=== PATIENT | male | born 1935 | race Caucasian/White ===

== ENCOUNTER 2017-12-30 15:43 | Inpatient (IN) | payer OTHER, MEDICARE ==
[~2017-12-30] VITALS: Ht 165.1 cm; Wt 94.3 kg
--- NOTE | ~2017-12-30 | CRIT ---
[facility] [place] [address] CRITICAL CARE NOTE Name: MICHAEL ANTOINE Room #: 454-P [facility] [place] .R.#: [id number] Admission: 12/30/17 Attend Phys: Ilsa Pandya Discharge: 01/01/18 Date of : 39 Report #: [id number] THIS REPORT FOR: //name// CC: Andre Quiroz DATE OF SERVICE: 12/31/2017 SUBJECTIVE: The patient is a very pleasant 82-year-old male who presents with a couple episodes of small volume hematochezia. He denies significant abdominal pain. He had a similar bleed a couple of years ago and underwent colonoscopy at that time. He is noted to have significant diverticulosis. He has no other GI complaints. PAST MEDICAL HISTORY: Notable for GERD, hypertension, prostate cancer, status post prostatectomy and radiation. He has had diverticulitis and osteoarthritis. He had a left knee replacement, hernia repair, and tonsillectomy. FAMILY HISTORY AND SOCIAL HISTORY: Noncontributory. ALLERGIES: He is allergic to no medications. MEDICATIONS ON presentation, hydrochlorothiazide, Flonase, Ultram, omeprazole, multivitamin lisinopril, Singulair, Lipitor, hydrocodone, Zyrtec, calcium, hyoscyamine and aspirin. REVIEW OF SYSTEMS: CONSTITUTIONAL: Negative for weight loss, weakness or fatigue. HEENT: He denies head, eyes, ears, nose or throat complaints. Denies chest pain, chest palpitation, chest pressure, cough, shortness of breath, wheezing, genitourinary, musculoskeletal or neuropsychiatric complaints otherwise. PHYSICAL EXAMINATION: VITAL SIGNS: Afebrile, vital signs stable. HEENT: Nonicteric. NECK: No JVD, thyromegaly or bruits. CARDIOVASCULAR: Regular. LUNGS: Clear. ABDOMEN: Soft, nondistended, nontender, normoactive bowel sounds. No hepatosplenomegaly. No stigmata of chronic liver disease. No abnormal masses or bruits. EXTREMITIES: No clubbing, cyanosis or edema. NEUROLOGIC: Not performed. RECTAL: Not performed. PERTINENT LABORATORY DATA: Include white count 9.2, hemoglobin 13.8, normal MCV, normal RDW. Chemistry notable for BUN 32, creatinine 1.3, glucose 109. No [address] [address] CRITICAL CARE NOTE Name: MICHAEL ANTOINE Room #: 454-P [facility] IN [facility].#: [id number] Admission: 12/30/17 Attend Phys: Ilsa aPndya Discharge: 01/01/18 Date of : 39 Report #: [id number] liver tests were obtained. Lipase as well. IMAGING: Extensive colonic diverticulosis and possibly mild descending colonic diverticulitis and cholelithiasis. ASSESSMENT AND PLAN: In summary, the patient has limited rectal bleeding, most likely secondary to hemorrhoids and/or diverticulosis. I would advance his diet and discharge in the next 24 hours if is no further bleeding for a colonoscopy in 2 to 3 weeks. He does not have significant abdominal pain, so I doubt that the CT findings really represent acute diverticulitis. Thank you for allowing us to participate in the care of this nice man. We will follow. <ELECTRONICALLY SIGNED> By: Brendan Baird MD 01/02/18 1249 [id number] [id number] Chas Garcia MD /nt
--- NOTE | ~2017-12-30 | H ---
[facility] [place] [address] HISTORY AND PHYSICAL Name: MICHAEL ANTOINE Room #: 454-P ADM IN M.R.#: [id number] Admission: 12/30/17 Attend Phys: Ilsa Pandya Discharge: Date of : 39 Report #: [id number] THIS REPORT FOR: //name// CC: Andre Quiroz DATE OF SERVICE: 12/30/2017 CHIEF COMPLAINT: Rectal bleeding. HISTORY OF PRESENT ILLNESS: The patient is an 82-year-old gentleman with a history of diverticulitis, who came to the Emergency Room with 1-day rectal bleeding. He was in his usual state of health and was using the bathroom with a bowel movement noted bright red blood. He did not have any pain, fever, chills, nausea, vomiting. He does take Mobic at home, but has not had any upper GI issues of nausea, vomiting or hematemesis. He had 1 further bloody stool and was noted to have some blood in ER; however, overnight he has had no further bleeding. PAST MEDICAL HISTORY: GERD, hypertension, prostate cancer treated with prostatectomy in 2004 and radiation treatment, diverticulitis with remission in 2009, diffuse osteoarthritis. PAST SURGICAL HISTORY: He has had a left knee replacement, hernia repair, tonsillectomy. FAMILY HISTORY: Noncontributory. SOCIAL HISTORY: No chronic alcohol or tobacco use. ALLERGIES: No known drug allergies. MEDICATIONS: Hydrochlorothiazide, Flonase, Ultram, omeprazole, multivitamin, lisinopril, Singulair, Lipitor, hydrocodone, Zyrtec, calcium, hyoscyamine, aspirin. REVIEW OF SYSTEMS: He denies headache, chest pain, shortness of breath, abdominal pain, nausea, vomiting, diarrhea, constipation, dysuria, syncope or fall. PHYSICAL EXAMINATION: VITAL SIGNS: Temperature 36.4, pulse 63, respirations 18, blood pressure 134/59. GENERAL: He is awake and alert, in no distress. LUNGS: Clear. HEART: Regular. ABDOMEN: Soft, normoactive bowel sounds. No rebound or guarding. [facility] [address] [place] [address] HISTORY AND PHYSICAL Name: MICHAEL ANTOINE Room #: 454-P [facility] IN ..#: [id number] Admission: 12/30/17 Attend Phys: Ilsa Pandya Discharge: Date of : 39 Report #: [id number] EXTREMITIES: No cyanosis, clubbing or edema. LABORATORY DATA: White count was normal, hemoglobin was almost 14. Chemistry unremarkable. CT abdomen and pelvis reviewed revealing colonic diverticulosis with mild descending colon diverticulitis and cholelithiasis. ASSESSMENT: 1. Acute diverticulitis. 2. Acute lower gastrointestinal bleed due to the above. PLAN: I will continue IV antibiotics and bowel rest today. I have asked the GI service to assess him, but this may be a situation where we allow his diverticulitis to clear with antibiotics and consider a scope as an outpatient unless another emergent issue arises. However, await their opinion. <ELECTRONICALLY SIGNED> By: Ronaldo Palacios MD 01/01/18 0902 0813 1002 Ronaldo Palacios MD /nt
--- NOTE | ~2017-12-30 | D ---
[facility] [place] [address] DISCHARGE SUMMARY Name: MICHAEL ANTOINE Room #: 454-P [facility] IN M.R.#: [id number] Admission: 12/30/17 Attend Phys: Ilsa Pandya Discharge: 01/01/18 Date of : 39 Report #: [id number] THIS REPORT FOR: //name// CC: Andre Quiroz FINAL DIAGNOSES: 1. Lower gastrointestinal bleed. 2. Acute diverticulitis. HOSPITAL COURSE: The patient was admitted with lower GI bleed. He had a couple episodes of bright red blood. Hemoglobin remained stable and he had no further bleeding during his stay. He had a regular bowel movement on the day of discharge, vital signs remained stable. CT suggested diverticulosis, maybe with some inflammation. He was treated empirically with antibiotics for acute diverticulitis. The GI service evaluated him and felt that endoscopy at 4-6 week interval would be appropriate as there was no urgent indication currently. PHYSICAL EXAMINATION: On the day of discharge: GENERAL: He was awake and alert. VITAL SIGNS: Stable. LUNGS: Clear. HEART: Regular. ABDOMEN: Protuberant, soft, normoactive bowel sounds. Nontender. EXTREMITIES: No edema. DISPOSITION: Discharged home with diet and activity as tolerated, resume all medications with the exception of aspirin to restart in 3 days. He will finish a 7-day course of antibiotics with Cipro and Flagyl. Follow up with Dr. Quiroz in 2 weeks, Dr. Baird in 4 weeks. <ELECTRONICALLY SIGNED> By: Ronaldo Palacios MD 01/02/18 0921 1202 1336 Ronaldo Palacios MD /nt
[~2017-12-30 15:43] MED LIST: ACETAMINOPHEN325 M1 PO; ANTACID500 MG PO; APAP500 PO; ASPIRIN EC81 M1 PO; CELEBREX 200 M200 MG PO; EXCEDRIN CAPLE1 EACH PO; FLONASE16 GM NASAL; HCTZ PO; HYDROCHLOROTH12.5 MG PO; HYDROCODONE PO; HYDROCODONE-AP1 EAC6 PO; IRON325 PO; LIPITOR20 MG PO; LISINOPRIL10 MG; LISINOPRIL2.5 MG PO; LOPRESSOR 50 MG50 M1 PO; MULTIVITAMINS PO; MULTIVITAMINS1 EAC7 PO; NASAL DECONGEST10 MG PO; NULEV0.125 MG SUBLING; OMEPRAZOLE20 MG PO; PERCOCET 5-3251 EACH PO; PRINIVIL20 MG PO; SINGULAIR 10 MG10 M1 PO; SUDAFED30 MG PO; TAGAMET HB200 MG PO; TRAMADOL 50 MG50 MG PO; TUMS DUAL ACTI1 EACH PO
[2017-12-30 16:22] VITALS: BP 157/75
[2017-12-30 18:18] LABS: EOSINOPHILS 2.7 % (0.0-3.0); HEMATOCRIT 40.9 % (42.0-52.0); HEMOGLOBIN 13.8 gm/dL (14.0-18.0); LYMPHOCYTES 11.1 % (24.0-44.0); MCH 29.8 pg (26.0-34.0); MCHC 33.9 g/dL (28.0-37.0); MCV 88.1 fL (80.0-100.0); MONOCYTES 8.5 % (1.0-8.0); PLATELET COUNT 233 thou/uL (150-400); POLYS 76.7 % (36.0-66.0); RBC 4.64 mil/uL (4.50-6.00); WBC 9.2 thou/uL (4.0-11.0)
[2017-12-30 18:27] LABS: CALCIUM 9.4 mg/dL (8.5-10.1); CREATININE 1.3 mg/dL (0.7-1.3); POTASSIUM 4.6 mmol/L (3.5-5.1)
[2017-12-30] MEDS ORDERED: HYDROCHLOROTH12.5 M1 PO (19:41)
[2017-12-30] MEDS ORDERED: ZYRTEC10 M4 PO (19:42)
[2017-12-30] MEDS ORDERED: ACETAMINOPHEN500 M1 PO (19:43)
[2017-12-30] MEDS ORDERED: TUMS PO (19:44)
[2017-12-30] MEDS ORDERED: NULEV0.125 MG PO (19:46)
[2017-12-30] MEDS ORDERED: ADULT ASPIRIN81 MG PO (19:47)
[2017-12-30] MEDS ORDERED: ACID REDUCER200 MG PO (19:50)
[2017-12-30 20:27] VITALS: BP 149/81
[2017-12-30 21:04] VITALS: BP 179/84
[2017-12-30] MEDS ORDERED: MOBIC15 MG PO (21:51)
[2017-12-30] MEDS ORDERED: ASPERCREME76.5 GM INTRADERM (22:51)
[2017-12-31 04:19] VITALS: BP 134/59
[2017-12-31 08:35] VITALS: BP 144/64
[2017-12-31 09:05] LABS: HEMOGLOBIN 12.5 gm/dL (14.0-18.0); MCHC 33.8 g/dL (28.0-37.0); MCV 88.9 fL (80.0-100.0); RBC 4.16 mil/uL (4.50-6.00); RDW 13.7 % (10.5-14.5); WBC 7.8 thou/uL (4.0-11.0)
[2017-12-31 16:25] VITALS: BP 129/52
[2017-12-31 19:53] VITALS: BP 112/54
[2018-01-01 05:45] LABS: HEMATOCRIT 38.4 % (42.0-52.0); HEMOGLOBIN 13.1 gm/dL (14.0-18.0); MCH 30.1 pg (26.0-34.0); MCHC 34.1 g/dL (28.0-37.0); MCV 88.2 fL (80.0-100.0); RBC 4.36 mil/uL (4.50-6.00); RDW 13.6 % (10.5-14.5); WBC 8.9 thou/uL (4.0-11.0)
[2018-01-01 08:00] VITALS: BP 151/67
[2018-01-01] MEDS ORDERED: ADULT ASPIRIN81 MG PO (11:58)
[2018-01-01] MEDS ORDERED: FLAGYL500 MG PO (11:59)
[2018-01-01] MEDS ORDERED: CIPRO500 MG PO (11:59)
[2018-01-01 12:07] VITALS: BP 151/67
== END 2018-01-01 16:30 | disposition home or self-care (01) | DRG 379 ==
LOC: ER 15:43 → EROBS 19:59 → 4W 19:59 → ENTRNSPT 01-01 16:00 → 4W 01-01 16:30
PROVIDERS: Internal Medicine Geriatric Medicine; Student in an Organized Health Care Education/Training Program
DX: K57.93 Diverticulitis of intestine, part unspecified, without perforation or abscess with bleeding (principal); K21.9 Gastro-esophageal reflux disease without esophagitis; K57.91 Diverticulosis of intestine, part unspecified, without perforation or abscess with bleeding; Z96.652 Presence of left artificial knee joint; M19.90 Unspecified osteoarthritis, unspecified site; I10 Essential (primary) hypertension; Z79.899 Other long term (current) drug therapy; Z85.46 Personal history of malignant neoplasm of prostate; Z92.3 Personal history of irradiation
CPT/HCPCS: 10045

== ENCOUNTER → 2018-02-14 | Outpatient (CLI) | payer OTHER, MEDICARE ==
[~2018-02-14] VITALS: Ht 165.1 cm; Wt 88.5 kg
[~2018-02-14] MED LIST changes: +ACETAMINOPHEN500 M1 PO; +ACID REDUCER200 MG PO; +ADULT ASPIRIN81 MG PO; +ASPERCREME76.5 GM INTRADERM; +ASPIR 8181 M1 PO; +CIPRO500 MG PO; +FLAGYL500 MG PO; +FLONASE 0.05%50 MCG NASAL; +HYDROCHLOROTH12.5 M1 PO; +MOBIC15 MG PO; +NULEV0.125 MG PO; +TUMS PO; +ZYRTEC10 M4 PO
--- NOTE | ~2018-02-14 | PATH ---
[facility] [place] [address] PATHOLOGY RPT PROCEDURE Name: ANTOINEMICHAEL French Room #: REG BHARAT [place]#: [id number] Admission: 02/14/18 Date of : 39 Discharge: Report #: [id number] Path Case #: [id number] [facility] Accession Number: [id number] . 01 Material submitted: . POLYP AT ASCENDING COLON . 01 Clinician provided ICD-10: K57.30 . 01 Clinical history: . Pre-OP DX: Diverticulosis Post-OP DX: Colon polyp, diverticulosis . 02 Diagnosis: Polyp, at ascending colon, endoscopic biopsy: - Inflammatory polyp with numerous eosinophils (please see comment). - Negative for dysplasia. RUST/02/15/2018 . 02 Comment: Examination shows scattered rare foci of cryptitis with a markedly expanded lamina propria showing predominantly eosinophils. The eosinophils in the current specimen are numerous. Potential etiologies for this pattern may include allergic diseases, collagen vascular diseases, fungal or parasitic infections as well as eosinophilic colitis (idiopathic variant) in addition to medication induced changes. Please correlate with clinical and endoscopic findings. (IUV:pit 02/15/2018) . 02 Electronically signed: . Renata Cedeno MD, Pathologist NPI- [id number] . 01 Gross description: . Received in formalin labeled "Michael Antoine, polyp at ascending colon," are 2 segments of buckner soft tissue measuring 0.7 x 0.3 x 0.3 cm in aggregate dimensions and ranging from 0.3 to 0.4 cm in maximum dimension. The specimen is submitted entirely in cassette A1. (TSD; 02/14/2018) TOB/TOB . 02 Pathologist provided ICD-10: K51.40 . 02 CPT . [id number] [address] [address] PATHOLOGY RPT PROCEDURE Name: MICHAEL ANTOINE Room #: REG CL Wei.#: [id number] Admission: 02/14/18 Date of : 39 Discharge: Report #: [id number] Path Case #: [id number] Specimen Comment: A courtesy copy of this report has been sent to Specimen Comment: [phone], . Specimen Comment: Report sent to / DR MEADOWS Specimen Comment: A duplicate report has been generated due to demographic updates. Performed at: [address], [place], [place] [id number] MD Adrian Clauido MD Phone: [phone] Performed at: [address] [id number] MD Renata Cedeno MD Phone: [phone]
--- NOTE | ~2018-02-14 | P ---
[facility] [place] [address] PROCEDURE REPORT Name: MICHAEL ANTOINE [id number] Admission: 02/14/18 Attend Phys: Brendan [place] Discharge: Date of : 39 Report #: [id number] THIS REPORT FOR: //name// CC: Drew Quiroz DATE OF SERVICE: 02/14/2018 PROCEDURE PERFORMED: Colonoscopy with biopsies. HISTORY OF PRESENT ILLNESS: The patient is an 82-year-old male who was hospitalized for hematochezia on 12/30/2017 and was discharged on 01/01/2018. He has a previous history of diverticulosis. His bleeding spontaneously stopped. He is having no further symptoms at this time. Plan is for colonoscopy. DESCRIPTION OF PROCEDURE: The risks and benefits of the procedure were explained to the patient; those risks including but not limited to bleeding, perforation and the risk of sedation. He understood these risks and gave informed consent. Sedation was given using propofol per anesthesia. Next, a digital rectal exam was initially performed, which was normal. Next, using a standard Olympus colonoscope, the scope was placed in the patient's anus and advanced under direct vision to the cecum. The overall prep was excellent. The cecum and ileocecal valve were normal in appearance. In the proximal ascending colon, a 3-mm sessile polyp was noted. This was removed with cold forceps, otherwise normal. Transverse colon was normal. Multiple diverticula were noted in the descending and sigmoid colon. No evidence of inflammation. No stigmata of recent bleeding. No colitis. The rectal mucosa was normal. On retroflexion, small nonbleeding internal hemorrhoids were noted. A single external hemorrhoid, nonbleeding, was also noted. The scope was then withdrawn and the procedure terminated. The patient tolerated the procedure well. IMPRESSION: 1. Small colonic polyp. 2. Left-sided diverticulosis, without evidence of bleeding. 3. Internal and external hemorrhoids, as described above. RECOMMENDATIONS: 1. Await biopsy results. 2. Suspect recent bleeding was either due to diverticular bleed or due to hemorrhoids, none of which have signs of bleeding at this time. We would recommend simply observing and a high-fiber diet. If significant bleeding occurs in the future, could consider nuclear medicine bleeding scan at that time. [address] [address] PROCEDURE REPORT Name: MICHAEL ANTOINE Room #: REG BHARAT [place]#: [id number] Admission: 02/14/18 Attend Phys: Brendan [place] Discharge: Date of : 39 Report #: [id number] Thank you for allowing me to participate in his care. <ELECTRONICALLY SIGNED> By: Brendan Baird MD 02/16/18 0845 1106 2329 Brendan Baird MD /nt
== END | disposition home or self-care (01) ==
LOC: GI 09:06
DX: K63.5 Polyp of colon (principal); K57.30 Diverticulosis of large intestine without perforation or abscess without bleeding; K64.8 Other hemorrhoids; K64.4 Residual hemorrhoidal skin tags; K21.9 Gastro-esophageal reflux disease without esophagitis; I10 Essential (primary) hypertension; I25.2 Old myocardial infarction; E78.5 Hyperlipidemia, unspecified; M19.90 Unspecified osteoarthritis, unspecified site; Z95.1 Presence of aortocoronary bypass graft; Z87.891 Personal history of nicotine dependence; Z96.653 Presence of artificial knee joint, bilateral; Z98.890 Other specified postprocedural states; Z79.899 Other long term (current) drug therapy; Z87.19 Personal history of other diseases of the digestive system; Z85.46 Personal history of malignant neoplasm of prostate; Z79.82 Long term (current) use of aspirin
CPT/HCPCS: 62110; 62900

== ENCOUNTER → 2019-10-30 | Outpatient (CLI) | payer OTHER, MEDICARE | LOC: SJCVC 14:13 | PROVIDERS: ATTEND Internal Medicine | DX: R94.31 Abnormal electrocardiogram [ECG] [EKG] (principal); I25.810 Atherosclerosis of coronary artery bypass graft(s) without angina pectoris; I10 Essential (primary) hypertension; E78.5 Hyperlipidemia, unspecified; I65.23 Occlusion and stenosis of bilateral carotid arteries; M15.9 Polyosteoarthritis, unspecified; E78.00 Pure hypercholesterolemia, unspecified; Z79.899 Other long term (current) drug therapy; Z82.49 Family history of ischemic heart disease and other diseases of the circulatory system; Z95.1 Presence of aortocoronary bypass graft; Z87.891 Personal history of nicotine dependence ==

== ENCOUNTER → 2020-04-30 | Outpatient (CLI) | payer OTHER, MEDICARE | LOC: SJCVCIMAG 11:24 | PROVIDERS: ATTEND Internal Medicine | DX: I65.23 Occlusion and stenosis of bilateral carotid arteries (principal); R94.31 Abnormal electrocardiogram [ECG] [EKG]; R00.1 Bradycardia, unspecified; I25.10 Atherosclerotic heart disease of native coronary artery without angina pectoris; I10 Essential (primary) hypertension; E78.5 Hyperlipidemia, unspecified; Z95.1 Presence of aortocoronary bypass graft; Z79.82 Long term (current) use of aspirin; Z79.899 Other long term (current) drug therapy ==

== ENCOUNTER → 2021-05-05 | Outpatient (CLI) | payer OTHER, MEDICARE | LOC: SJCVCIMAG 09:10 | PROVIDERS: ATTEND Internal Medicine | DX: I08.2 Rheumatic disorders of both aortic and tricuspid valves (principal); I25.10 Atherosclerotic heart disease of native coronary artery without angina pectoris; I65.23 Occlusion and stenosis of bilateral carotid arteries; I10 Essential (primary) hypertension; E78.5 Hyperlipidemia, unspecified; E78.00 Pure hypercholesterolemia, unspecified; Z87.891 Personal history of nicotine dependence; Z72.89 Other problems related to lifestyle; Z88.8 Allergy status to other drugs, medicaments and biological substances; Z79.82 Long term (current) use of aspirin; Z79.899 Other long term (current) drug therapy; Z95.1 Presence of aortocoronary bypass graft ==